=== PATIENT | male | born 1970 | race Caucasian/White ===

== ENCOUNTER 2017-01-15 14:03 | Emergency (ER) | payer MEDICAID, OTHER ==
[~2017-01-15] VITALS: Ht 188 cm; Wt 117.9 kg
[~2017-01-15 14:03] MED LIST: INSU100V9; INSULIN
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
--- NOTE | 2017-01-15 14:08 | NUR ---
Dr. Martinez at bedside to assess pt.
--- NOTE | 2017-01-15 14:10 | NUR ---
Sandro pisano ordered for Pt.
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
[2017-01-15 14:53] LABS: BASOPHILS % (AUTO) 0.5 % (0.0-2.0); EOSINOPHILS % (AUTO) 0.3 % (0.0-4.0); HEMATOCRIT 42.3 % (36-54); HEMOGLOBIN 13.8 g/dL (14.0-18.0); LYMPHOCYTES # (AUTO) 0.9 K/uL (1.0-5.5); LYMPHOCYTES % (AUTO) 16.5 % (20.5-51.5); MEAN CORPUSCULAR HEMOGLOBIN 29 pg (27-31); MEAN CORPUSCULAR HGB CONC 33 % (32-36); MEAN CORPUSCULAR VOLUME 88 fL (79.0-98.0); MONOCYTES # (AUTO) 0.2 K/uL (0.0-1.0); MONOCYTES % (AUTO) 4.3 % (1.7-9.3); NEUTROPHILS # (AUTO) 4.3 K/uL (1.8-7.7); NEUTROPHILS % (AUTO) 78.4 % (40.0-70.0); PLATELET COUNT (AUTO) 135 K/uL (130-430); RED BLOOD CELL COUNT(AUTO) 4.81 MIL/uL (4.2-6.2); RED CELL DISTRIBUTION WIDTH 11.8 % (9.0-15.0); WHITE BLOOD COUNT (AUTO) 5.4 K/uL (4.8-10.8)
--- NOTE | 2017-01-15 15:01 | NUR ---
WANTS TO GO HOME. STATES HE FEELS BETTER. LABS STILL PENDING.
[2017-01-15 15:06] LABS: CALCIUM 9.7 mg/dL (8.4-11.0); CREATININE 0.97 mg/dL (0.55-1.30)
[2017-01-15 15:08] LABS: INR 1.1 (0.80-1.20)
[2017-01-15 15:13] LABS: ALBUMIN 4.2 g/dL (3.4-4.8); TOTAL BILIRUBIN 0.4 mg/dL (0.0-1.0)
--- NOTE | 2017-01-15 15:20 | NUR ---
REPEAT ACCU CHECK 134.
--- NOTE | 2017-01-15 15:26 | NUR ---
Patient given written and verbal discharge instructions and verbalizes understanding. ER MD discussed with patient the results and treatment provided. Patient in stable condition. ID arm band removed. IV catheter removed intact and dressing applied, no active bleeding. NO Rx given. Patient educated on pain management and to follow up with PMD. Pain Scale . Opportunity for questions provided and answered. PT DISCHARGED TO WAITING ROOM TO WAIT FOR A CAB.
[2017-01-15 15:33] VITALS: BP 152/60; PULSE 77; RESP 20; TEMP 97.4; O2SAT 16
[2017-01-15 15:52] LABS: CKMB RELATIVE INDEX 4.5 (0.0-2.9); CREATINE KINASE MB 17.5 ng/mL (0-3.6)
== END 2017-01-15 15:26 | disposition home or self-care (01) ==
LOC: SED 14:03
DX: E11.649 Type 2 diabetes mellitus with hypoglycemia without coma (principal); Z79.4 Long term (current) use of insulin
CPT/HCPCS: 36415; 71010; 80053; 82550-TC; 82553-TC; 82962; 83880; 84484; 85025; 85610-TC; 85730-TC; 93005; 99285